=== PATIENT | female | born 1930 ===

== ENCOUNTER 2016-12-04 12:35 | Emergency (ER) | payer MEDICARE, OTHER ==
[2016-12-04 12:36] VITALS: BMI 30.7
[2016-12-04 12:56] VITALS: BP 118/65; PULSE 74; RESP 18; TEMP 97.9; O2SAT 99
[2016-12-04 13:47] LABS: RBC URINE 8 /hpf (0-3); URINE BACTERIA RARE (<OCC); URINE BILIRUBIN NEGATIVE (NEGATIVE); URINE BLOOD NEGATIVE (NEGATIVE); URINE COLOR AMBER (YELLOW); URINE GLUCOSE (UA) NEG (Normal); URINE KETONE NEGATIVE (NEGATIVE); URINE LEUKOCYTE ESTERASE SMALL Leu/uL (Negative); URINE PROTEIN 30 mg/dL (NEGATIVE); WBC URINE 7 /hpf (0-5)
[2016-12-04 13:49] LABS: BASO % 0.5 % (0.0-2.0); EOS # 0.1 K/uL (0.0-0.7); HEMATOCRIT 31.6 % (34.0-47.0); LYMPH # 1.4 K/uL (1.0-4.3); LYMPH % 25.2 % (20.0-40.0); MEAN CELL VOLUME 91.2 fl (81.0-99.0); MEAN PLATELET VOLUME 9.1 fl (7.2-11.7); MONO # 0.7 K/uL (0.0-0.8); MONO % 11.9 % (0.0-10.0); NEUT # 3.5 K/uL (1.8-7.0); NEUT % 61.4 % (50.0-75.0); RED CELL DISTRIBUTION WIDTH 14.7 % (11.5-14.5); WHITE BLOOD COUNT 5.7 K/uL (4.8-10.8)
[2016-12-04 13:51] LABS: ALB/GLOB RATIO 0.8 (1.0-2.1); ALKALINE PHOSPHATASE 283 U/L (38-126); ALT/SGPT 68 U/L (9-52); AST/SGOT 90 U/L (14-36); BILIRUBIN,TOTAL 0.6 mg/dl (0.2-1.3); BLOOD UREA NITROGEN 20 mg/dl (7-17); CALCIUM 8.6 mg/dL (8.4-10.2); CARBON DIOXIDE 19 mmol/L (22-30); CHLORIDE 111 mmol/L (98-107); GFR AFRICAN-AMERICAN > 60; GLUCOSE,RANDOM 90 mg/dL (65-105); POTASSIUM 4.3 MMOL/L (3.6-5.0); SODIUM 137 mmol/l (132-148)
--- NOTE | 2016-12-04 13:55 | ED PDOC ---
HPI: Abdomen Time Seen by Provider: 12/04/16 13:07 Chief Complaint (Nursing): Abdominal Pain Chief Complaint (Provider): Abdominal Pain History Per: Patient History/Exam Limitations: no limitations Onset/Duration Of Symptoms: Days (x1 week) Current Symptoms Are (Timing): Still Present Additional Complaint(s): 86 y/o female with a past medical history of liver cancer presents to the emergency department with a complaint of an abdominal pain described as burning around the epigastric region and diarrhea x1 week. Denies dizziness, chills, fever, nausea, or vomiting. PMD: Dr. Azeem Marsh MD Past Medical History Reviewed: Historical Data, Nursing Documentation, Vital Signs Vital Signs: Last Vital Signs Temp 97.9 F 12/04/16 12:55 Pulse 74 12/04/16 12:55 Resp 18 12/04/16 12:55 BP 118/65 12/04/16 12:55 Pulse Ox 99 12/04/16 14:04 - Medical History PMH: HTN Other PMH: Liver cancer - Family History Family History: States: Unknown Family Hx - Home Medications Home Medications: Ambulatory Orders Medication Instructions Recorded Alendronate [Fosamax] 70 mg PO QWK 05/12/16 Enalapril Maleate [Vasotec] 5 mg PO DAILY 05/12/16 Omeprazole 20 mg PO DAILY 05/12/16 Dicyclomine [Bentyl] 20 mg PO BID PRN #30 tab 07/22/16 Fluticasone Propionate [Flonase 1 spray ERWIN BID PRN 07/22/16 Allergy Relief] Ondansetron [Zofran] 4 mg PO Q8H PRN #30 tab 07/22/16 Bismuth Subsalicylate [kaopECTATE] 262 mg PO QID PRN #1 bottle 12/04/16 - Allergies Allergies/Adverse Reactions: Allergies Allergy/AdvReac Type Severity Reaction Status Date / Time iodine Allergy SWELLING Verified 12/04/16 13:29 shrimp Allergy SWELLING Verified 12/04/16 13:29 Review of Systems ROS Statement: Except As Marked, All Systems Reviewed And Found Negative Constitutional: Negative for: Chills Gastrointestinal: Positive for: Abdominal Pain, Diarrhea. Negative for: Nausea , Vomiting Neurological: Negative for: Dizziness Physical Exam - Reviewed Nursing Documentation Reviewed: Yes Vital Signs Reviewed: Yes - Physical Exam Appears: Positive for: Non-toxic, No Acute Distress Head Exam: Positive for: ATRAUMATIC, NORMOCEPHALIC Skin: Positive for: Normal Color, Warm, Dry Neck: Positive for: Normal, Supple Cardiovascular/Chest: Positive for: Regular Rate, Rhythm. Negative for: Murmur Respiratory: Positive for: Normal Breath Sounds. Negative for: Accessory Muscle Use, Respiratory Distress Gastrointestinal/Abdominal: Positive for: Soft, Tenderness (Mild epigastric tenderness) Rectal: Positive for: Normal Exam, Rectal Tone Is: (normal), Stool Is Heme: ( negative) Extremity: Positive for: Normal ROM. Negative for: Pedal Edema Neurologic/Psych: Positive for: Alert, Oriented - Laboratory Results Result Diagrams: 12/04/16 13:33 12/04/16 13:33 - ECG O2 Sat by Pulse Oximetry: 99 (RA) Pulse Ox Interpretation: Normal Medical Decision Making Medical Decision Making: Time: 13:07 Initial impression: Diarrhea vs gastroenteritis vs colitis Initial plan: --COMP Metabolic Panel --Dipstick --CBC w/ differential --Pepcid 20 mg IVP --IV Insertion --Revaluation Scribe Attestation: Documented by Glenny Lucas, acting as a scribe for Syl Hodgson MD. Provider Scribe Attestation: All medical record entries made by the Scribe were at my direction and personally dictated by me. I have reviewed the chart and agree that the record accurately reflects my personal performance of the history, physical exam, medical decision making, and the department course for this patient. I have also personally directed, reviewed, and agree with the discharge instructions and disposition. Disposition - Clinical Impression Clinical Impression: Diarrhea - Patient ED Disposition Is Patient to be Admitted: No Doctor Will See Patient In The: Office Counseled Patient/Family Regarding: Diagnosis, Need For Followup, Rx Given - Disposition Referrals: Azeem Marsh MD [Family Provider] - Disposition: Routine/Home Disposition Time: 14:42 Condition: STABLE Prescriptions: Bismuth Subsalicylate [kaopECTATE] 262 mg PO QID PRN #1 bottle PRN Reason: Diarrhea Instructions: Acute Diarrhea (ED) Print Language: KHMER - POA Present On Arrival: None
== END 2016-12-04 15:12 | disposition home or self-care (01) ==
LOC: H.ER 12:35
DX: R19.7 Diarrhea, unspecified (principal)

== ENCOUNTER 2017-01-23 09:51 | Emergency (ER) | payer MEDICARE, OTHER ==
[2017-01-23 09:52] VITALS: BMI 30.7
[2017-01-23 11:33] LABS: BASO % 0.2 % (0.0-2.0); EOS % 0.1 % (0.0-4.0); HEMATOCRIT 27.1 % (34.0-47.0); LYMPH # 4.9 K/uL (1.0-4.3); LYMPH % 56.3 % (20.0-40.0); MEAN CELL VOLUME 96.9 fl (81.0-99.0); MEAN CORPUSCULAR HEMOGLOBIN 32.5 pg (27.0-31.0); MEAN CORPUSCULAR HGB CONC 33.6 g/dL (33.0-37.0); MEAN PLATELET VOLUME 9.5 fl (7.2-11.7); MONO # 0.5 K/uL (0.0-0.8); MONO % 5.5 % (0.0-10.0); NEUT # 3.3 K/uL (1.8-7.0); NEUT % 37.9 % (50.0-75.0); PLATELET COUNT 207 K/uL (130-400); RED CELL DISTRIBUTION WIDTH 16.1 % (11.5-14.5); WHITE BLOOD COUNT 8.7 K/uL (4.8-10.8)
[2017-01-23 11:42] LABS: ALB/GLOB RATIO 0.8 (1.0-2.1); ALKALINE PHOSPHATASE 734 U/L (38-126); ALT/SGPT 131 U/L (9-52); AST/SGOT 204 U/L (14-36); BILIRUBIN,TOTAL 17.6 mg/dl (0.2-1.3); BLOOD UREA NITROGEN 26 mg/dl (7-17); CALCIUM 8.4 mg/dL (8.4-10.2); CARBON DIOXIDE 20 mmol/L (22-30); CHLORIDE 104 mmol/L (98-107); GFR AFRICAN-AMERICAN > 60; GLUCOSE,RANDOM 92 mg/dL (65-105); LIPASE 126 U/L (23-300); POTASSIUM 4.6 MMOL/L (3.6-5.0); SODIUM 136 mmol/l (132-148); TOTAL PROTEIN 7.6 G/DL (6.3-8.2)
[2017-01-23 12:10] LABS: GRANULAR CAST 4 /lpf (0-1); RBC URINE 6 /hpf (0-3); URINE BACTERIA OCC (<OCC); URINE BILIRUBIN MODERATE (NEGATIVE); URINE BLOOD SMALL (NEGATIVE); URINE COLOR RED (YELLOW); URINE GLUCOSE (UA) 50 mg/dL (Normal); URINE KETONE NEGATIVE (NEGATIVE); URINE LEUKOCYTE ESTERASE TRACE Leu/uL (Negative); URINE PROTEIN 100 mg/dL (NEGATIVE); WBC URINE 17 /hpf (0-5)
--- NOTE | 2017-01-23 13:12 | CT ---
PROCEDURE: CT abdomen pelvis dated 01/23/2017. HISTORY: Epigastric pain. History of liver carcinoma COMPARISON: Comparison made with prior CT scan abdomen pelvis 07/22/2016 TECHNIQUE: Contiguous axial images of the abdomen and pelvis. Oral contrast was administered. No IV contrast given. Coronal and Sagittal reformats generated. Radiation dose: Total exam DLP = 486.84 mGy-cm. This CT exam was performed using one or more of the following dose reduction techniques: Automated exposure control, adjustment of the mA and/or kV according to patient size, and/or use of iterative reconstruction technique. FINDINGS: LOWER THORAX: Bibasilar atelectasis on. No effusion or basilar pneumothorax. Heart size within range of normal. No significant pericardial effusion. Small hiatal hernia. LIVER: Liver again demonstrates irregular somewhat nodular surface contour. Large heterogeneous masslike lesion within the left lobe as well as smaller (approximately 2.9 cm x 2.4 cm) rounded lesion in the posterior superior aspect right lobe of. Findings consistent with this patient's history of liver carcinoma likely representing HCC however clinical correlation recommended. The borders of the lesion are ill-defined however the overall size has markedly increased when compared with the prior exam and suspected smaller posterior superior satellite lesion is new No change peripherally calcified elliptical shaped lesion lateral aspect lateral segment left lobe liver. GALLBLADDER AND BILE DUCTS: Gallbladder contains multiple intraluminal calculi and is relatively collapsed. PANCREAS: Pancreas is slightly atrophic and fatty replaced. No pancreatic mass collection or calcification. . SPLEEN: The spleen exhibits normal size and attenuation pattern. Tiny calcifications seen in the hilar region likely vascular in origin. ADRENALS: The right adrenal gland unremarkable. Mildly enlarged left adrenal gland. KIDNEYS AND URETERS: Kidneys exhibit relatively symmetric size. No evidence of nephrolithiasis or hydronephrosis. BLADDER: Urinary bladder is incompletely distended which may account for slight thick-walled appearance. The possibility of cystitis not excluded. REPRODUCTIVE: Other than periuterine calcifications likely vascular in origin the uterus is unremarkable. APPENDIX: A normal appendix best seen on coronal image number [id number]. No periappendiceal inflammatory changes. BOWEL: Evaluation of the bowel is limited due to the lack of oral contrast. Stomach is incompletely distended which presumably accounts for thick-walled appearance. Gastritis or other intrinsic/ invasive wall lesion not excluded. Visualized loops of small bowel exhibit normal contour and caliber. No evidence of acute mechanical small bowel obstruction. PERITONEUM: Stool and air seen throughout the colon. No definitive mural wall thickening. There may be an occasional colonic diverticula along the sigmoid colon region. LYMPH NODES: Evaluation for adenopathy is somewhat limited due to the lack of circulating intravenous as well as oral contrast material. In There does appear to be multiple small non specific retroperitoneal lymph nodes. VASCULATURE: No evidence of abdominal aortic aneurysm. Partially calcified plaque seen along the abdominal aorta. BONES: Multilevel degenerative spondylosis of the lower thoracic and lumbar spine. There is mild dextroscoliosis centered at the L2-L3 level. No suspicious lytic or blastic lesions identified at this time. OTHER FINDINGS: None. IMPRESSION: Large ill-defined mass lesion within the right and left lobes of the liver consistent with HCC. This mass has increased in size and there is a new smaller satellite lesion superior aspect posterior segment right lobe liver. Re- demonstrated is a peripherally calcified masslike lesion lateral most aspect lateral segment left lobe liver Cholelithiasis. See above discussion for additional findings and details. Findings discussed with emergency room DERRICK Laboy at approximately 1:10 p.m. with written down and read back verification.
[2017-01-23 14:30] LABS: TOTAL CELLS COUNTED 100
[2017-01-23 14:36] LABS: NEUTROPHIL 74 % (42-75)
[2017-01-23 14:37] LABS: STOMATOCYTES SLIGHT
--- NOTE | 2017-01-23 14:58 | ED PDOC ---
HPI: Abdomen Time Seen by Provider: 01/23/17 10:09 Chief Complaint (Nursing): Abdominal Pain Chief Complaint (Provider): Epigastric pain History Per: Patient History/Exam Limitations: no limitations Onset/Duration Of Symptoms: Hrs Current Symptoms Are (Timing): Better Location Of Pain/Discomfort: Epigastric Quality Of Discomfort: Cramping, Burning Associated Symptoms: Loss Of Appetite, Other. denies: Fever, Chills, Nausea, Vomiting Additional Complaint(s): Pt has history of HCC and is being seen by onocolgist Dr. Beach in [place]. Pt states she was not having pain until today. Daugher gave her pepcid which has improved the pain. Pt denies N/V. 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 No fever.chills. Past Medical History Reviewed: Historical Data, Nursing Documentation, Vital Signs Vital Signs: Last Vital Signs Temp 98.1 F 01/23/17 15:10 Pulse 72 01/23/17 15:10 Resp 16 01/23/17 15:10 BP 118/77 01/23/17 15:10 Pulse Ox 100 01/23/17 15:10 - Medical History PMH: HTN Other PMH: HCC - Surgical History Surgical History: No Surg Hx - Family History Family History: States: Unknown Family Hx - Living Arrangements Living Arrangements: With Family - Social History Current smoker - smoking cessation education provided: No Alcohol: None Drugs: Denies - Home Medications Home Medications: Ambulatory Orders Medication Instructions Recorded Alendronate [Fosamax] 70 mg PO QWK 05/12/16 Enalapril Maleate [Vasotec] 5 mg PO DAILY 05/12/16 - Allergies Allergies/Adverse Reactions: Allergies Allergy/AdvReac Type Severity Reaction Status Date / Time iodine Allergy SWELLING Verified 12/04/16 13:29 shrimp Allergy SWELLING Verified 12/04/16 13:29 Review of Systems ROS Statement: Except As Marked, All Systems Reviewed And Found Negative Gastrointestinal: Positive for: Abdominal Pain Physical Exam - Reviewed Nursing Documentation Reviewed: Yes Vital Signs Reviewed: Yes - Physical Exam Appears: Positive for: Well, Non-toxic, No Acute Distress Head Exam: Positive for: ATRAUMATIC, NORMAL INSPECTION, NORMOCEPHALIC Skin: Positive for: Normal Color, Warm, DRY Eye Exam: Positive for: Normal appearance ENT: Positive for: Normal ENT Inspection Neck: Positive for: Normal, Painless ROM Cardiovascular/Chest: Positive for: Regular Rate, Rhythm Respiratory: Positive for: CNT, Normal Breath Sounds Gastrointestinal/Abdominal: Positive for: Bowel Sounds, Soft, Tenderness ( Epigastric pain ). Negative for: Normal Exam Back: Positive for: Normal Inspection Extremity: Positive for: Normal ROM Neurologic/Psych: Positive for: Alert, Oriented - Laboratory Results Result Diagrams: 01/23/17 11:17 01/23/17 11:17 - ECG O2 Sat by Pulse Oximetry: 98 Medical Decision Making Medical Decision Making: PT denies pain on re-evaluation. Discussed CT with patient and daughter and elevation LFT/biliburin. Pt states that she feels much better and would like to go home. Discussed with Dr. Marsh. Dr. Marsh states she can f/u with him outpatient. Pt has appointment with him tomorrow. Disposition - Clinical Impression Clinical Impression: Gastritis, Liver cancer - Patient ED Disposition Is Patient to be Admitted: No Counseled Patient/Family Regarding: Diagnosis, Need For Followup, Rx Given - Disposition Referrals: Azeem Marsh MD [Family Provider] - Disposition: Routine/Home Disposition Time: 14:58 Condition: GOOD Instructions: Gastritis (ED) Print Language: TELUGU
[2017-01-23 15:12] VITALS: BP 118/77; PULSE 72; RESP 16; TEMP 98.1
[2017-01-23 15:32] VITALS: O2SAT 98
--- NOTE | 2017-01-24 16:50 | CARD ---
APPROVED REPORT EKG Measurement Heart [id number] <Conclusion> Sinus rhythm with premature atrial complexes Low voltage QRS Right bundle branch block Abnormal ECG
== END 2017-01-23 15:12 | disposition home or self-care (01) ==
LOC: H.ER 09:51
DX: K29.70 Gastritis, unspecified, without bleeding (principal); R10.13 Epigastric pain